=== PATIENT | female | born 1990 | race Caucasian/White ===

== ENCOUNTER 2024-06-16 17:00 | Outpatient (RCR) | payer OTHER | END 2024-06-20 | LOC: PT 17:00 | PROVIDERS: ATTEND Orthopaedic Surgery | DX: M65.28 Calcific tendinitis, other site (principal) | CPT/HCPCS: 97110 ×4; 97140 ×3; 97162; G0283 ==

== ENCOUNTER 2024-07-19 14:51 | Outpatient (RCR) | payer OTHER | END 2024-07-21 | LOC: PT 14:51 | PROVIDERS: ATTEND Orthopaedic Surgery | DX: S43.432A Superior glenoid labrum lesion of left shoulder, initial encounter (principal) ==

== ENCOUNTER 2024-10-07 14:54 | Outpatient (RCR) | payer OTHER | END 2024-10-21 | LOC: PT 14:54 | PROVIDERS: ATTEND Orthopaedic Surgery | DX: M75.32 Calcific tendinitis of left shoulder (principal) ==